=== PATIENT | male | born 1960 | race Caucasian/White ===

== ENCOUNTER 2025-09-10 09:15 | Outpatient (AMB) | payer OTHER, SELFPAY ==
--- NOTE | 2025-09-10 09:24 | A.PHYSOV_ITS ---
Vital Signs 09/10/25 09:27 Height 6 ft 3 in Weight 160 lb BMI 20.0 Intake Visit Reasons: 3M FUV Intake Note: Patient is a 65 year old male in office today for a 3 month follow up visit. Last C7-T1 alicia 04/22/25. 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 He reports persistent bilateral neck pain with radiation down his arms. His last intervention was a central cervical epidural injection on April 22, which provided approximately 40% pain relief for a period of time. Patient underwent C7-T1 ALICIA. He reports that a prior double shot injection was more effective, though one experience was horrible due to the absence of an anesthesiologist. Patient reports that bilateral C7 TFESI provided better relief and is requesting repeat injection. Over the last two nights, his symptoms have worsened, describing them as crunchy, cracking sensations in his neck, a pounding headache, and pain running down his arms, which disrupts his sleep. He manages his symptoms at night by lying on his back with a richard pillow and practicing slow, deep breaths to help his muscles relax. He takes unspecified pain medication and anti- inflammatories. The patient recently underwent dental work, including the removal of two molars on one side. Following the procedure, he developed a significant facial ecchymosis which started as a nickel-sized purple verito and spread. He has been taking amoxicillin and prednisone for a related infection and was prescribed more amoxicillin pre- and post-procedure. The patient also mentions having a nuclear stress test nearly a year ago and only having the follow-up for the results about a month and a half ago. He reports feeling stressed and tired of being pushed to see different specialists and to start an antidepressant. Pain Description - Location: Bilateral neck. - Radiation: Pain radiates down both arms. - Associated Symptoms: Pounding headache, crunchy, cracking sensation in the neck. - Exacerbating Factors: Worsens at night when trying to sleep. - Relieving Factors: Lying on his back, adjusting a richard pillow, and taking slow, deep breaths can help it relax. - Interference with Function: Pain disrupts his sleep. [facility] Social History Alcohol intake: current Alcohol intake frequency: holidays/special occasions only Patient Tobacco Use Status: Current everyday Tobacco user Current occupational status: retired Review of Systems Narrative Review of Systems - HEENT: Reports recent extraction of two molars and subsequent facial ecchymosis. - Denies fever associated with his recent dental issue. - Neurological: Reports pounding headaches and pain radiating down both arms. - Musculoskeletal: Reports bilateral neck pain and a crunchy, cracking sensation in the neck at night. - Psychiatric: Reports feeling significant stress. Physical Exam Exam Exam: Physical Exam Cervical Spine: Examination of the cervical spine, there is no visible swelling or deformity. He is tender to bilateral upper trapezius. He has limited range of motion of the cervical spine at end range throughout. Special Tests: Axial Compression test: Negative Spurlings test: Negative Lhermitte's sign is Negative Upper Extremities: Full range of motion bilateral upper extremities. Equal facility examiner strength bilaterally. Neuro: Sensation: Intact to upper extremities bilateral to light touch Strength C5 (Elbow Flexion): 5/5 on the left and 5/5 on the right. C6 (Elbow Ext): 5/5 on the left and 5/5 on the right. C7 (Elbow Ext): 5/5 on the left and 5/5 on the right. C8 (Finger Flex): 5/5 on the left and 5/5 on the right. T1 (Finger Abd/Add): 5/5 on the left and 5/5 on the right. DTR: C5 (Biceps): Left 2 Right 2 C6 (Brachioradialis): Left 1 Right 1 C7 (Triceps): Left 2 Right 2 Aguilar sign: Negative No pathologic clonus. No involuntary movement. Vital Signs: BMI result Body Mass Index 20.0 Assessment & Plan Assessment & Plan (1) Cervical radiculopathy: Code(s): M54.12 - Radiculopathy, cervical region Category: Medical (2) Cervical spondylosis: Code(s): M47.812 - Spondylosis without myelopathy or radiculopathy, cervical region Category: Medical Plan Pain Management - Affect: The patient reports feeling a lot of stress. - Analgesia: The patient is taking unspecified pain medication and anti- inflammatories. - A prior central epidural injection on April 22 provided about 40% pain relief, which is considered significant but not complete. - Activities of Daily Living: His pain, particularly at night, interferes with his ability to sleep. - Adverse Effects: The patient mentions a past horrible experience with an injection where an anesthesiologist was not present. - Aberrant Drug Related Behaviors: No aberrant behaviors were discussed. Plan Patient was informed and verbally consented to the use of an ambient scribe for clinic note documentation during this visit. 1. Chronic Neck Pain With Cervical Radiculopathy The patient's chronic bilateral neck pain with radiculopathy into the arms persists despite a central cervical epidural steroid injection in April, which provided only 40% relief. 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 The authorization for the injection will be valid for two months, and the patient will call to schedule when he is ready. The procedure will be performed at [facility], [place]. 2. Status Post Dental Extraction The patient is recovering from recent extraction of two molars and is being treated with amoxicillin for a related infection. He will need to be fully healed from the procedure and any infection before proceeding with the planned cervical injection. Discussion Notes I discussed the patient's ongoing chronic neck pain and bilateral radiculopathy. We reviewed his prior central epidural injection from April, which provided about 40% relief, and his report that a previous bilateral injection was more effective. 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 The patient agreed with this plan. We discussed the timing of the procedure, and I advised that we must wait until he is fully healed from his recent dental work and no longer has an active infection. I explained that we would order the injection now and that the authorization would last for two months, giving him time to heal and then call to schedule. I informed the patient that the practice is now with [facility] and the procedure would be performed there. Patient Instructions - We will order the bilateral neck injections for you. - Do not schedule the injection procedure until you have completely healed from your recent dental surgery and are no longer on antibiotics for an infection. - The authorization we get for the injection will be valid for about two months. - Our office will call you, and you can then call back to schedule the injection when you are ready. - The procedure will be done at [facility], [place]. Orders: Referrals Physiatry Procedure Notification M47.812 - Spondylosis without myelopathy or radiculopathy, cervical region, M54.12 - Radiculopathy, cervical region Coding Level of Care Code Tele Est Pt Level 3 (68961) Diagnoses Cervical radiculopathy M54.12 Cervical spondylosis M47.812
== END 2025-09-10 10:11 | disposition home or self-care (01) ==
LOC: HO.HPHYS 09:15
PROVIDERS: PCP Physician Assistant Medical; Visit Provider Physician Assistant
DX: M54.12 Radiculopathy, cervical region (principal); M47.812 Spondylosis without myelopathy or radiculopathy, cervical region
CPT/HCPCS: 99213